=== PATIENT | male | born 1955 | race Caucasian/White ===

== ENCOUNTER 2019-03-01 12:13 | Outpatient (REF) | payer OTHER, SELFPAY ==
[2019-03-01 20:38] LABS: Abs Immature Grans 0.01 k/cumm (0.0-0.09); Absolute Basophil Count 0.02 k/cumm (0.0-0.2); Absolute Eosinophil Count 0.06 k/cumm (0.0-0.7); Absolute Lymphocyte Count 1.01 k/cumm (1.2-3.4); Absolute Monocyte Count 0.35 k/cumm (0.11-0.7); Absolute Neutrophil Count 2.84 k/cumm (1.2-6.7); Basophils % 0.5; Eosinophils % 1.4; HCT 41.2 % (40.0-50.0); HGB 13.8 g/dL (13.5-17.5); Immature Grans % 0.2; Lymphocytes % 23.5; Mean Corp. HGB Concentration 33.5 g/dL (32.0-36.0); Mean Corpuscular Hemoglobin 32.1 pg (27.0-33.0); Mean Corpuscular Volume 95.8 fL (80-95); Mean Platelet Volume 10.5 fL (8.0-11.0); Monocytes % 8.2; Neutrophils % 66.2; Platelet Count 281 x1000/uL (130-400); RBC Distribution Width 12.5 % (11.8-14.1); White Blood Cell Count 4.29 k/cumm (4.4-10.8)
[2019-03-01 20:39] LABS: Calculated LDL 87 mg/dL; Cholesterol 173 mg/dL (50-200); HDL Cholesterol 80 mg/dL (40-60); Triglyceride 33 mg/dL (30-150)
== END 2019-03-01 12:33 ==
LOC: NCHCN 12:13
PROVIDERS: PCP Internal Medicine; Visit Provider Internal Medicine
DX: D72.819 Decreased white blood cell count, unspecified (principal); Z13.220 Encounter for screening for lipoid disorders
CPT/HCPCS: 80061; 85025

== ENCOUNTER 2020-02-21 17:12 | Emergency (ER) | payer MEDICARE, OTHER, SELFPAY ==
[2020-02-21 17:17] VITALS: BP 139/82; PULSE 62; RESP 18; TEMP 36.1; O2SAT 99
--- NOTE | 2020-02-21 17:51 | ED.GENADUL_ITS ---
Discharge Plan Disposition Patient Disposition: HOME Condition: Stable Discharge Details Clinical Impression: Cervical muscle strain Primary Care Provider: Noel Peter ED Provider: Alona Moreno Home Meds and New Rx's Prescriptions: New cyclobenzaprine 10 mg tablet 10 mg PO TID PRN (Reason: muscle spasm) Qty: 10 RF: 0 No Action fluoxetine [Prozac] 20 MG capsule 1 tab PO DAILY RF: 0 bupropion HCl [Wellbutrin] 100 mg Tablet 150 mg PO DAILY RF: 0 Discharge Instructions Instructions: Cervical Strain (ED) Additional Instructions: Follow up with primary care provider in 3-5 days. Return to ED sooner if any worsening or concerns. Increase oral fluids. Please take Tylenol or Ibuprofen with food every 4-6 hours as needed for pain and swelling. Alternate ice and heat. Try massage. Referrals: Noel Peter MD [Primary Care Provider] - Discharge Data Discharge Date/Time-TO BE ENTERED AT DEPARTURE: 02/21/20 18:28 Medical Decision Making 64-year-old male presents to the ER with chief complaint of left lateral neck pain and stiffness which occurred while at work prior to arrival. He reports that he slept wrong and awoke with a stiff neck this morning. During work hours he raised his left arm up and had increased severe pain. He denies any trauma or falls, no fever chills. Upon initial exam he does have a muscle spasm and tight muscle noted to the left cervical paraspinous area. Patient did not take any medications prior to arrival. He does have a past medical history of depression. Patient was given Flexeril, lidocaine patch, Toradol which improved his sym ptoms. At this time no imaging was ordered due to no trauma or falls. Findings are consistent with musculoskeletal spasm. Patient was discharged home with prescription for Flexeril. HPI General Mode of arrival: ambulatory . Date/Time Provider Initiated Documentation: 02/21/20 17:31 . Limitations to Documentation: no limitations . Information obtained by: patient . HPI Narrative: 64-year-old male presents to the ER with chief complaint of left lateral neck pain and stiffness which occurred while at work prior to arrival. He reports that he slept wrong and awoke with a stiff neck this morning. During work hours he raised his left arm up and had increased severe pain. He denies any trauma or falls, no fever chills. Upon initial exam he does have a muscle spasm and tight muscle noted to the left cervical paraspinous area. Patient did not take any medications prior to arrival. He does have a past medical history of depression. Related Data Home Medications Medication Instructions Recorded Confirmed fluoxetine [Prozac] 1 tab PO DAILY 06/18/13 02/21/20 bupropion HCl [Wellbutrin] 150 mg PO DAILY 02/21/20 02/21/20 cyclobenzaprine 10 mg PO TID PRN #10 tab 02/21/20 Previous Rx's Medication Instructions Recorded cyclobenzaprine 10 mg PO TID PRN #10 tab 02/21/20 Allergies Allergy/AdvReac Type Severity Reaction Status Date / Time No Known Allergies Allergy Unverified 02/21/20 17:21 General Stated Complaint: Nk/Back Pain LEONEL: 3 Review of Systems Narrative: Constitutional: Negative for weight loss, alert and oriented, well groomed, normal body habitus, appears comfortable. HEENT: Denies trauma, headaches, blurry vision, nasal discharge, sore throat, trouble swallowing. Chest: Denies chest pain, palpitations, irregular rhythm, hypertension. Respiratory: Denies Shortness of breath, cough, hemoptysis. GI: Denies abdominal pain, nausea, vomiting, diarrhea, constipation. : Denies dysuria, hematuria, flank pain, rectal bleeding. Neuro: Denies dizziness, blurry vision, weakness, syncope, headache or facial numbness. Hematologic: Denies easy bruising, intolerance to heat or cold, hair loss. [facility] Social History Smoking/Tobacco Use Status: Never Alcohol Intake: former Drug use: Never Substance use type: does not use Do you feel safe at home: Yes Do you feel safe in your relationship?: Yes Exam Narrative Exam Narrative: Constitutional: Alert and oriented x3. Appears stated age. Normal body habitus. Head: Normocephalic, no trauma. Eyes: Pupils PERRLA, Red reflex noted, EOM's intact. Eyelids symmetrical without lesions, discharge, or swelling. ENT: Bilateral TM's WNL, External ear normal to inspection, no mastoid TTP, swelling, or erythema, Nasal turbinates WNL, no nasal discharge. Normal dentition, Posterior pharynx WNL, no exudate. Chest: RRR, Normal S1, S2, distal pulses intact. Resp: Lungs clear to auscultation bilaterally, no wheezes, rales, or rhonchi. Musculoskeletal: Normal gait, 5/5 strength to all four extremities. Skin: No suspicious rashes or lesions. Capillary refill less than 2 sec. Neurologic: Cranial nerves II-XII intact. Alert and oriented x 3. DTR's intact. Hematologic/Lymphatic: No ecchymosis, no lymphadenopathy. Course Vital Signs Vital signs: Vital Signs Temperature 36.1 C L 02/21/20 17:17 Pulse 62 02/21/20 17:17 Respiratory Rate 18 02/21/20 17:17 Blood Pressure 139/82 02/21/20 17:17 Pulse Oximetry 99 02/21/20 17:17 Temperature 36.1 C L 02/21/20 17:17 Temperature Source Temporal Artery Scan 02/21/20 17:17 Pulse 62 02/21/20 17:17 Respiratory Rate 18 02/21/20 17:17 Respiratory Effort Non-Labored 02/21/20 17:23 Blood Pressure 139/82 02/21/20 17:17 Blood Pressure Position Sitting 02/21/20 17:17 Pulse Oximetry 99 02/21/20 17:17 Pain Level 3 02/21/20 17:17
[2020-02-21] MEDS: Ketorolac 10 MG TAB PO (18:11)
[2020-02-21] MEDS: Cyclobenzaprine 10 MG TAB PO (18:11)
[2020-02-21] MEDS: Lidocaine 5% Patch 1 PATCH TP (18:29)
== END 2020-02-21 18:28 | disposition home or self-care (01) ==
PROVIDERS: Emergency Provider Registered Nurse Emergency; PCP Internal Medicine
DX: S16.1XXA Strain of muscle, fascia and tendon at neck level, initial encounter (principal); X50.9XXA Other and unspecified overexertion or strenuous movements or postures, initial encounter
CPT/HCPCS: 99283

== ENCOUNTER 2020-06-28 18:57 | Outpatient (REF) | payer MEDICARE, OTHER, SELFPAY ==
[2020-06-28 21:39] LABS: Abs Immature Grans 0.02 10^3/uL (0.0-0.06); Absolute Basophil Count 0.04 10^3/uL (0.0-0.2); Absolute Eosinophil Count 0.17 10^3/uL (0.0-0.7); Absolute Lymphocyte Count 1.61 10^3/uL (1.2-3.4); Absolute Monocyte Count 0.69 10^3/uL (0.1-0.8); Absolute Neutrophil Count 3.82 10^3/uL (1.2-6.7); Basophils % 0.6; Eosinophils % 2.7; HCT 40.8 % (40.0-50.0); HGB 13.7 g/dL (13.5-17.5); Immature Grans % 0.3; Lymphocytes % 25.4; MCH 32.5 pg (27.0-33.0); MCHC 33.6 % (32.0-36.0); MCV 96.9 fL (80-95); MPV 9.8 fL (8.0-11.0); Monocytes % 10.9; Neutrophils % 60.1; Nucleated RBC 0 %; Platelet Count 280 10^3/uL (130-400); RBC 4.21 10^6/uL (4.36-5.78); RDW 12.7 % (11.8-14.1); RDW-SD 45.1 fL; WBC 6.35 10^3/uL (4.4-10.8)
[2020-06-28 21:52] LABS: ALT 24 U/L (16-63); AST 23 U/L (15-37); Albumin 3.8 g/dL (3.4-5.0); Alkaline Phosphatase 60 U/L (46-116); Anion Gap 7.5 mmol/L (3-11); BUN 21 mg/dL (7-18); Bilirubin, Total 0.5 mg/dL (0.2-1.0); CO2 29.5 mmol/L (21.0-32.0); CREATININE 0.9 mg/dL (0.70-1.30); Calcium 9.1 mg/dL (8.5-10.1); Chloride 103 mmol/L (98-107); Glucose 88 mg/dL (74-106); Potassium 4.5 mmol/L (3.5-5.1); Sodium 140 mmol/L (136-145); Total Protein 6.8 g/dL (6.4-8.2)
[2020-06-29 02:13] LABS: ESR 15 mm/hr (<or=20)
== END 2020-06-28 18:58 | disposition home or self-care (01) ==
LOC: NCHCN 18:57
PROVIDERS: PCP Internal Medicine; Visit Provider Nurse Practitioner Family
DX: R10.9 Unspecified abdominal pain (principal)
CPT/HCPCS: 80053; 85652; 85025

== ENCOUNTER 2021-06-05 16:43 | Emergency (ER) | payer MEDICARE, OTHER, SELFPAY ==
[2021-06-05 16:49] VITALS: BP 141/75; PULSE 67; RESP 16; TEMP 36.8; O2SAT 98
[2021-06-05] MEDS: Acetaminophen 325 MG TAB 650 MG PO (17:27)
--- NOTE | 2021-06-05 17:47 | NUR.NOTE ---
Nursing Note:Pt ambulatory to radiology for head CT
--- NOTE | 2021-06-05 17:53 | NUR.NOTE ---
Nursing Note: Pt return from radiology, head abrasion cleansed with NS, no current bleeding.
--- NOTE | 2021-06-05 17:59 | DI.CT_ITS ---
Exam(s) CT HEAD WO EXAM: CT HEAD WO CLINICAL HISTORY: Trauma. TECHNIQUE: Imaging Protocol: Axial computed tomography images with coronal and sagittal reformatted images were created and reviewed COMPARISON: No exams were available for comparison FINDINGS: There is mild generalized cerebral atrophy. No evidence of acute intracranial hemorrhage, mass effect, or midline shift. The orbital structures are unremarkable. The temporal bone structures appear intact. Calvarium: Normal. Visualized Paranasal sinuses/Mastoids: Clear. IMPRESSION: No evidence of acute intracranial process. RADIATION DOSE DELIVERED: 699.14mGy.cm Total DLP 699.14mGy.cm Total DLP CTDIvol DATA REPOSITORY: All CT scans at this facility are submitted to the National Radiology Data Registry (NRDR) Dose Index Registry (DIR) with the [employer] ([employer]). RADIATION OPTIMIZATION: All CT scans at this facility use at least one of these dose optimization te chniques: automated exposure control; mA and/or kV adjustment per patient size (includes targeted exa ms where dose is matched to clinical indication); or iterative reconstruction.
--- NOTE | 2021-06-05 18:30 | DI.VRAD_ITS ---
PROCEDURE INFORMATION: Exam: CT Head Without Contrast Exam date and time: 06/05/2021 5:19 PM Age: 65 years old Clinical indication: Injury or trauma; Laceration; Without loss of consciousness; Without residual foreign body; Not specified; Patient HX: Trauma, S/P fall down 7 stairs hitting head on door. No loc TECHNIQUE: Imaging protocol: Computed tomography of the head without contrast. Radiation optimization: All CT scans at this facility use at least one of these dose optimization techniques: automated exposure control; mA and/or kV adjustment per patient size (includes targeted exams where dose is matched to clinical indication); or iterative reconstruction. COMPARISON: CT HEAD WITHOUT CONTRAST 07/26/2014 1:46 PM FINDINGS: Brain: Slight prominence of cerebral sulci reflects mild volume loss. Posterior fossa contents including brainstem and cerebellum are unremarkable and no significant foci of abnormal increased or decreased attenuation are seen within the brain parenchyma. No intracranial hemorrhage is detected. Cerebral ventricles: Ventricular and cisternal spaces are normal in size and configuration and there is no midline shift or hydrocephalus. Paranasal sinuses: Lobular mucosal disease is seen along the medial base of the right maxillary sinus with other paranasal sinuses clear throughout. Mastoid air cells: Grossly clear bilaterally. Orbital cavity: Both globes appear intact and no orbital lesions are detected. Bones/joints: The bony calvarium and skull base are intact and no fractures or other acute osseous lesions are detected. Soft tissues: Unremarkable. IMPRESSION: Mild cerebral atrophy with no evidence of acute infarct, recent hemorrhage or hydrocephalus. No acute intracranial process is detected. Dictated and Authenticated by: Jacobo Orozco MD. Ordering:DONTE Herrera MD
--- NOTE | 2021-06-05 18:31 | ED.GENADUL_ITS ---
Discharge Plan Disposition Patient Disposition: HOME Condition: Stable Discharge Details Clinical Impression: Head injury due to trauma, Laceration of scalp Primary Care Provider: Noel Peter ED Provider: Javier Perez Home Meds and New Rx's Prescriptions: Continued fluoxetine [Prozac] 20 MG capsule 1 tab PO DAILY RF: 0 bupropion HCl 100 mg Tablet 150 mg PO DAILY RF: 0 Discharge Instructions Instructions: Head Injury (ED), Head Laceration (ED) Additional Instructions: You may continue to take [id number] pain medication as needed for discomfort. Please keep wound clean and dry and return to the emergency department for any new or significant worsening of your symptoms. If you have any neurological complaints, neurological deficit, vision changes, or loss of consciousness you should return immediately for reassessment. Otherwise rest over the couple days and slowly increase activity as tolerated Discharge Data Discharge Date/Time-TO BE ENTERED AT DEPARTURE: 06/05/21 19:03 Medical Decision Making Patient presenting to the emergency department for chief complaint of mechanical fall. Patient states approximately 30 minutes prior to arrival he fell down approximately 7 stairs hitting his head. Patient denies any neck pain, loss of consciousness, focal neurological deficits but does state some mild dizziness and headache. Physical exam shows no C-spine tenderness, normal neurological exam, and laceration to scalp. Given patient's age and mechanism of injury plan to perform radiological imaging. Radiological imaging shows no acute findings. Wound was cleansed and treated appropriately. Return and follow-up precautions were discussed. At this time I do not feel that patient suffered a concussion but concussion precautions were still discussed given mechanism of injury. After discussion of diagnosis and plan of care patient has no further needs, questions, or concerns and states clear understanding to return to the emergency department for any worsening symptoms. HPI General Mode of arrival: ambulatory . Date/Time Provider Initiated Documentation: 06/05/21 16:57 . Limitations to Documentation: no limitations . Information obtained by: patient . History of Present Illness 65 year old M presents to the emergency department with the chief complaint of Mechanical fall downstairs, described as moderate, with intensity rated at 7. Quality is described as aching, and is localized to the head. Patient reports no radiation. Patient started experiencing this minute(s) (30) and it has been constant. No relieving factors improve symptom(s), No exacerbating factors reported . Patient notes no other symptoms.. Patient did receive the following treatments prior to arrival, none Related Data Home Medications Medication Instructions Recorded Confirmed fluoxetine [Prozac] 1 tab PO DAILY 06/18/13 06/05/21 bupropion HCl 150 mg PO DAILY 02/21/20 06/05/21 Allergies Allergy/AdvReac Type Severity Reaction Status Date / Time No Known Allergies Allergy Verified 06/05/21 16:56 General Stated Complaint: HeadInjury LEONEL: 3 Review of Systems Constitutional Constitutional: Denies body ache(s), Denies chills, Denies fever(s) and Reports headache(s) Eyes Eyes: Denies change in vision ENT Ears, Nose, Mouth, and Throat: Reports dizziness, Reports headache(s) and Denies neck pain Cardiovascular Cardiovascular: Denies chest pain and Denies syncope Gastrointestinal Gastrointestinal: Reports nausea and Reports vomiting Musculoskeletal Musculoskeletal: Denies back pain and Denies neck pain Neurologic Neurologic: Reports as per HPI, Reports dizziness, Denies syncope, Reports headache(s) and Denies sensory deficit PFSH All Active Problems Head injury due to trauma (Acute) Laceration of scalp (Acute) Social History Smoking/Tobacco Use Status: Never Smoking risk assessment performed?: Yes Alcohol Intake: former Drug use: Never Substance use type: does not use Do you feel safe at home: Yes Do you feel safe in your relationship?: Yes Exam Const General: cooperative, healthy appearing, no acute distress and well groomed Orientation: alert, awake and oriented x3 HENMT Head: no Lacy's sign, laceration left frontal linear and superficial 1.57 in, scalp tenderness and No periorbital ecchymosis Ears: hearing grossly normal bilaterally and TM's normal bilaterally Mouth: oral mucosae normal and moist mucous membranes Throat: posterior oropharynx normal Eyes Visual Trejo: normal visual trejo by confrontation Alignment and Position: alignment normal Periorbital: periorbital findings normal Eyelids: eyelids normal Sclera: sclerae normal Cornea: corneas normal Pupils: PERRL EOM: EOM intact bilaterally Neck Neck: normal visual inspection, full ROM, no lymphadenopathy and no meningeal signs Resp Effort & Inspection: normal respiratory effort and able to speak in complete sentences Auscultation: clear to auscultation bilaterally Cardio Rate: regular rate Rhythm: regular rhythm Heart Sounds: S1 normal and S2 normal Back/Spine/Pelvis Back: No back tenderness Cervical Spine: normal cervical lordosis, cervical ROM normal, No cervical muscular tenderness, No pain with cervical ROM, No cervical spinal tenderness and No step off deformity Neuro General: patient alert, patient awake, patient oriented x3, gait normal, tone normal, moves all extremities, CN's II-XI intact bilaterally and not confused Cognition: normal cognition Speech: speech normal Motor: no movement abnormalities noted and no fasciculations Sensory Exam: no sensory deficits noted Coordination: Does not sway with eyes open Course Vital Signs Vital signs: Vital Signs Temperature 36.8 C 06/05/21 16:49 Pulse 67 06/05/21 16:49 Respiratory Rate 16 06/05/21 16:49 Blood Pressure 141/75 H 06/05/21 16:49 Pulse Oximetry 98 06/05/21 16:49 Temperature 36.8 C 06/05/21 16:49 Temperature Source Skin 06/05/21 16:49 Pulse 67 06/05/21 16:49 Respiratory Rate 16 06/05/21 16:49 Respiratory Effort Non-Labored 06/05/21 16:58 Respiratory Depth Normal 06/05/21 16:58 Respiratory Pattern Normal 06/05/21 16:58 Blood Pressure 141/75 H 06/05/21 16:49 Blood Pressure Position Sitting 06/05/21 16:49 Pulse Oximetry 98 06/05/21 16:49 Oxygen Delivery Method Room Air 06/05/21 16:49 Oxygen Flow Rate 0 06/05/21 16:49 Pain Level 5 06/05/21 17:27 Procedures Laceration Laceration 1: Site: scalp Size (cm): 4 Description: linear Depth: simple, single layer Skin layer closed with: other (dermabond)
[2021-06-05 19:01] VITALS: BP 138/88; PULSE 74; RESP 18; TEMP 36.8; O2SAT 99
== END 2021-06-05 19:03 | disposition home or self-care (01) ==
PROVIDERS: Emergency Provider Nurse Practitioner Family; PCP Internal Medicine
DX: S01.01XA Laceration without foreign body of scalp, initial encounter (principal); W10.8XXA Fall (on) (from) other stairs and steps, initial encounter
CPT/HCPCS: 12002; 99284; 70450; 99283

== ENCOUNTER 2021-12-11 15:55 | Outpatient (REF) | payer MEDICARE, OTHER, SELFPAY ==
[2021-12-11 14:49] LABS: Abs Immature Grans 0.01 10^3/uL (0.0-0.06); Absolute Basophil Count 0.04 10^3/uL (0.0-0.2); Absolute Eosinophil Count 0.07 10^3/uL (0.0-0.7); Absolute Monocyte Count 0.38 10^3/uL (0.1-0.8); Absolute Neutrophil Count 3.55 10^3/uL (1.2-6.7); Basophils % 0.8; Eosinophils % 1.4; HCT 41.4 % (40.0-50.0); HGB 13.6 g/dL (13.5-17.5); Immature Grans % 0.2; Lymphocytes % 18.2; MCH 32.5 pg (27.0-33.0); MCHC 32.9 % (32.0-36.0); MCV 99 fL (80-95); MPV 9.8 fL (8.0-11.0); Monocytes % 7.7; Neutrophils % 71.7; Platelet Count 245 10^3/uL (130-400); RBC 4.18 10^6/uL (4.36-5.78); RDW 12.2 % (11.8-14.1); RDW-SD 44.4 fL; WBC 4.95 10^3/uL (4.4-10.8)
== END 2021-12-11 15:56 | disposition home or self-care (01) ==
LOC: NCHCN 15:55
PROVIDERS: PCP Internal Medicine; Visit Provider Internal Medicine
DX: D72.819 Decreased white blood cell count, unspecified (principal); F32.9 Major depressive disorder, single episode, unspecified; M47.892 Other spondylosis, cervical region
CPT/HCPCS: 85025

== ENCOUNTER 2022-09-18 00:35 | Outpatient (CLI) | payer MEDICARE, OTHER, SELFPAY ==
--- NOTE | 2022-09-18 | DI.MRI_ITS ---
Exam(s) MR LOWER JOINT LT WO EXAM: MR LOWER JOINT LT WO CLINICAL HISTORY: ACUTE LT KNEE PAIN, M25.562, LT KNEE LOCKS UP, DECREASED MOBILITIY, EFFUSIO. TECHNIQUE: Multiplanar multisequence MRI was performed. COMPARISON: No exams were available for comparison FINDINGS: BONES: There is no fracture or contusion pattern. JOINTS: There is mild thinning of the articular cartilage in the lateral patellar facet with mild sub chondral edema. There to clear cartilage is otherwise well maintained. No effusion is present. TENDONS: Extensor mechanism: Unremarkable. Medial retinaculum: Unremarkable. Lateral retinaculum: Unremarkable. Popliteus: Unremarkable. MUSCLES: Unremarkable. MENISCI: There is a focus of hyperintense signal seen in the posterior body of the medial meniscus diop ggestive of a tear. Degenerative signal seen in the lateral meniscus. No evidence of a tear. SOFT TISSUES: There is a large popliteal cyst measuring 2.2 x 3.3 x 14 cm. LIGAMENTS: Anterior Cruciate: Unremarkable. Posterior Cruciate: Unremarkable. Medial Collateral:There is a small amount of fluid around the medial collateral ligament which may re present a sprain. Lateral Collateral: Unremarkable. OTHER: IMPRESSION: 1. Large popliteal cyst. It measures 2.2 x 3.3 x 14 cm. 2. Focus of hyperintense signal seen in the posterior body of the medial meniscus suggestive of a tea r. 3. MCL sprain. 4. Degenerative changes in the patellofemoral joint. DATA REPOSITORY:
== END 2022-09-18 00:55 ==
PROVIDERS: PCP Internal Medicine; Visit Provider Internal Medicine
DX: M25.562 Pain in left knee (principal); M71.22 Synovial cyst of popliteal space [Baker], left knee
CPT/HCPCS: 73721

== ENCOUNTER 2022-10-10 12:49 | Outpatient (REF) | payer MEDICARE, OTHER, SELFPAY ==
[2022-10-10 14:22] LABS: Bilirubin Negative (Negative); Blood Negative (Negative); Clarity Clear (Clear); Glucose Negative (Negative); Ketones Trace mg/dL (Negative); Leukocyte Esterase Negative (Negative); Nitrite Negative (Negative); Specific Gravity 1.015 (1.005-1.025); Urobilinogen 0.2 mg/dL (Up to 0.2)
[2022-10-10 14:40] LABS: Anion Gap 6.7 mmol/L (3-11); BUN 22 mg/dL (7-18); CO2 28.3 mmol/L (21.0-32.0); CREATININE 1.1 mg/dL (0.70-1.30); Calcium 9.4 mg/dL (8.5-10.1); Calculated LDL 79 mg/dL (<100); Chloride 105 mmol/L (98-107); Cholesterol 190 mg/dL (<200); Estimated GFR 73.12 (mL/min/1.73m2); Glucose 120 mg/dL (74-106); HDL Cholesterol 95 mg/dL (40-60); Sodium 140 mmol/L (136-145); Triglyceride 81 mg/dL (<150)
== END 2022-10-10 12:50 | disposition home or self-care (01) ==
LOC: NCHCN 12:49
PROVIDERS: PCP Internal Medicine; Visit Provider Internal Medicine
DX: R03.0 Elevated blood-pressure reading, without diagnosis of hypertension (principal); R73.09 Other abnormal glucose; R82.998 Other abnormal findings in urine; Z13.6 Encounter for screening for cardiovascular disorders
CPT/HCPCS: 80048; 80061; 81003

== ENCOUNTER → 2023-04-03 09:02 | Outpatient (BNVA) | payer MEDICARE, OTHER, SELFPAY | PROVIDERS: PCP Family Medicine; Referring Provider Family Medicine; Visit Provider Student in an Organized Health Care Education/Training Program | DX: M72.0 Palmar fascial fibromatosis [Dupuytren] (principal) | CPT/HCPCS: 99213 ==

== ENCOUNTER 2023-05-28 13:35 | Outpatient (REF) | payer MEDICARE, OTHER, SELFPAY ==
[2023-05-28 23:11] LABS: PSA, Screening 21.3 ng/mL (<=4.5)
== END 2023-05-28 13:36 | disposition home or self-care (01) ==
LOC: NCHCN 13:35
PROVIDERS: PCP Family Medicine; Visit Provider Family Medicine
DX: N40.0 Benign prostatic hyperplasia without lower urinary tract symptoms (principal); Z12.5 Encounter for screening for malignant neoplasm of prostate; R97.20 Elevated prostate specific antigen [PSA]
CPT/HCPCS: 84153; 87086

== ENCOUNTER → 2023-06-04 14:52 | Outpatient (BNVA) | payer MEDICARE, OTHER, SELFPAY | PROVIDERS: PCP Family Medicine; Referring Provider Family Medicine; Visit Provider Nurse Practitioner Gerontology | DX: N40.2 Nodular prostate without lower urinary tract symptoms (principal); R35.1 Nocturia; R97.20 Elevated prostate specific antigen [PSA] | CPT/HCPCS: 51798; 99215 ==

== ENCOUNTER → 2023-06-20 12:31 | Outpatient (BNVA) | payer MEDICARE, OTHER, SELFPAY | PROVIDERS: PCP Family Medicine; Referring Provider Family Medicine; Visit Provider Urology | DX: N42.89 Other specified disorders of prostate (principal); R97.20 Elevated prostate specific antigen [PSA] | CPT/HCPCS: 99214 ==

== ENCOUNTER → 2023-06-26 08:38 | Outpatient (BNVA) | payer MEDICARE, OTHER, SELFPAY | PROVIDERS: PCP Family Medicine; Referring Provider Family Medicine; Visit Provider Urology | DX: N42.89 Other specified disorders of prostate (principal); R97.20 Elevated prostate specific antigen [PSA] | CPT/HCPCS: 55700; 76872 ==

== ENCOUNTER 2023-06-26 09:13 | Outpatient (REF) | payer MEDICARE, OTHER, SELFPAY ==
--- NOTE | 2023-06-26 09:30 | PROST_PTH ---
PATIENT: Andrea Spaulding LOC: [facility] U#:[id number] AGE/SX: 67/M ROOM: RE06/26/[address]: Pantera Calvo MD : 1955 BED: DIS: 06/26/2023 SPEC #: [id number] RECD: 06/26/23 12:36 STATUS: ANNA REHeidi #: [id number] DANGELO: 06/26/23 09:[address]: Pantera Calvo DEPT: Surgical Specimen RECD BY: Carisa Weiss ENTERED: 06/26/23 12:40 SP TYPE: PROST OTHR DR: Brendan Lee Tissues: 1 - PROSTATE NEEDLE BIOPSY 2 - PROSTATE NEEDLE BIOPSY 3 - PROSTATE NEEDLE BIOPSY 4 - PROSTATE NEEDLE BIOPSY 5 - PROSTATE NEEDLE BIOPSY 6 - PROSTATE NEEDLE BIOPSY 7 - PROSTATE NEEDLE BIOPSY 8 - PROSTATE NEEDLE BIOPSY 9 - PROSTATE NEEDLE BIOPSY 10 - PROSTATE NEEDLE BIOPSY 11 - PROSTATE NEEDLE BIOPSY 12 - PROSTATE NEEDLE BIOPSY Procedures: GROSS AND MICRO LEVEL 4 Comments: [id number]
== END 2023-06-26 09:14 | disposition home or self-care (01) ==
LOC: LBN 09:13
PROVIDERS: PCP Family Medicine; Visit Provider Urology
DX: R97.20 Elevated prostate specific antigen [PSA] (principal); C61 Malignant neoplasm of prostate
CPT/HCPCS: 88305

== ENCOUNTER → 2023-07-11 10:36 | Outpatient (BNVA) | payer MEDICARE, OTHER, SELFPAY | PROVIDERS: PCP Family Medicine; Referring Provider Family Medicine; Visit Provider Urology | DX: C61 Malignant neoplasm of prostate (principal) | CPT/HCPCS: 99215 ==

== ENCOUNTER → 2023-10-07 07:53 | Outpatient (BNVA) | payer MEDICARE, OTHER, SELFPAY | PROVIDERS: PCP Family Medicine; Referring Provider Family Medicine; Visit Provider Urology | DX: C61 Malignant neoplasm of prostate (principal) | CPT/HCPCS: 99213 ==

== ENCOUNTER 2023-11-10 16:39 | Outpatient (REF) | payer MEDICARE, OTHER, SELFPAY ==
[2023-11-10 15:57] LABS: HCT 39.8 % (40.0-50.0); HGB 13.1 g/dL (13.5-17.5); MCH 32.5 pg (27.0-33.0); MCHC 32.9 % (32.0-36.0); MCV 99 fL (80-95); MPV 9.8 fL (8.0-11.0); Platelet Count 253 10^3/uL (130-400); RBC 4.03 10^6/uL (4.36-5.78); RDW 12.3 % (11.8-14.1); RDW-SD 45.1 fL; WBC 4.26 10^3/uL (4.4-10.8)
[2023-11-10 17:24] LABS: ALT 32 U/L (16-63); AST 29 U/L (15-37); Albumin 4.1 g/dL (3.4-5.0); Alkaline Phosphatase 78 U/L (46-116); Anion Gap 6.6 mmol/L (3-11); BUN 21 mg/dL (7-18); Bilirubin, Total 0.53 mg/dL (0.2-1.0); CO2 29.4 mmol/L (21.0-32.0); CREATININE 1.1 mg/dL (0.70-1.30); Calcium 9.6 mg/dL (8.5-10.1); Chloride 105 mmol/L (98-107); Estimated GFR 72.67 (mL/min/1.73m2); Glucose 97 mg/dL (74-106); Potassium 4.7 mmol/L (3.5-5.1); Sodium 141 mmol/L (136-145); Total Protein 6.9 g/dL (6.4-8.2); Vitamin B12 141 pg/mL (193-986)
== END 2023-11-10 16:40 | disposition home or self-care (01) ==
LOC: NCHCN 16:39
PROVIDERS: PCP Family Medicine; Visit Provider Family Medicine
DX: R03.0 Elevated blood-pressure reading, without diagnosis of hypertension (principal); D53.1 Other megaloblastic anemias, not elsewhere classified
CPT/HCPCS: 80053; 85027; 82607

== ENCOUNTER → 2023-12-22 08:46 | Outpatient (BNVA) | payer MEDICARE, OTHER, SELFPAY | PROVIDERS: PCP Family Medicine; Referring Provider Family Medicine; Visit Provider Surgery | DX: L98.9 Disorder of the skin and subcutaneous tissue, unspecified (principal); C61 Malignant neoplasm of prostate; D53.1 Other megaloblastic anemias, not elsewhere classified | CPT/HCPCS: 99213 ==

== ENCOUNTER 2024-05-03 13:04 | Outpatient (CLI) | payer MEDICARE, OTHER, SELFPAY ==
[2024-05-05 10:32] LABS: PSA, Ultrasensitive 0.09 ng/mL (<= 4.5)
== END 2024-05-03 13:05 | disposition home or self-care (01) ==
PROVIDERS: PCP Family Medicine; Visit Provider Radiology Radiation Oncology
DX: C61 Malignant neoplasm of prostate (principal)
CPT/HCPCS: 36415; 84153

== ENCOUNTER 2024-08-16 10:53 | Outpatient (CLI) | payer MEDICARE, OTHER, SELFPAY ==
[2024-08-18 10:21] LABS: PSA, Ultrasensitive 0.45 ng/mL (<= 6.5)
[2024-08-19 15:12] LABS: Testosterone, Total 519 ng/dL (240-950)
== END 2024-08-16 10:54 | disposition home or self-care (01) ==
LOC: LBO 11:03
PROVIDERS: PCP Family Medicine; Visit Provider Radiology Radiation Oncology
DX: C61 Malignant neoplasm of prostate (principal)
CPT/HCPCS: 36415; 84153; 84403

== ENCOUNTER 2024-10-04 02:38 | Outpatient (CLI) | payer MEDICARE, OTHER, SELFPAY ==
--- NOTE | 2024-10-04 | DI.MRI_ITS ---
Exam(s) MR LUMBAR SPINE WO EXAM: MR LUMBAR SPINE WO CLINICAL HISTORY: SCIATICA LT SIDE,M54.32. TECHNIQUE: Multiplanar multisequence MRI of the Lumbar spine was performed. COMPARISON: MR MRI - LUMBAR SPINE WO CONTRAST from 11/25/2013 FINDINGS: Bones: The last intervertebral disc space is designated the L5/S1 level for the numbering purpose of this ex amination. The vertebral body heights are well maintained. Alignment: Unremarkable. Degenerative marrow signal changes in the endplates at L 4 5 and L5-S1. Cord: The conus tip ends at the T12 level. It is of normal size and signal intensity. T12-L1: Mild loss of disc height. Small endplate osteophytes. No focal disc herniation is present. No central spinal canal stenosis.No neural foraminal stenosis. L1-2:Severe loss of disc height. Small endplate osteophytes. No focal disc herniation is present. No central spinal canal stenosis. Mild bilateral neural foraminal stenosis. L2-3:Moderate loss of disc height. Small endplate osteophytes. No focal disc herniation is present. Mild facet joint degenerative changes. No central spinal canal stenosis. Moderate bilateral neural foraminal stenosis. L3-4: Normal disc height. Mild disc bulging. Mild facet degenerative changes.No focal disc herniation is present. No central spinal canal stenosis.Mild bilateral neural foraminal stenosis. L4-5:Right laminectomy. Moderate loss of disc height. Facet degenerative changes. No focal disc herni ation is present. Moderate central spinal canal stenosis.Moderate to severe bilateral neural foramin al stenosis. Mild spondylolisthesis. L5-S1: Mild loss of disc height eccentric toward the left. Endplate osteophytes eccentric toward the left. No focal disc herniation is present. No central spinal canal stenosis.Moderate left neural f oraminal stenosis. The visualized SI joints and sacrum are unremarkable. Soft tissues: The paraspinal soft tissues are unremarkable. IMPRESSION: Postsurgical and degenerative changes at L4-5 where there is moderate spinal stenosis and moderate bi lateral neural foraminal narrowing. No focal disc herniation.. DATA REPOSITORY:
== END 2024-10-04 02:58 ==
LOC: DI 02:38
PROVIDERS: PCP Family Medicine; Visit Provider Family Medicine
DX: M54.32 Sciatica, left side (principal); M48.061 Spinal stenosis, lumbar region without neurogenic claudication
CPT/HCPCS: 72148

== ENCOUNTER 2024-11-01 09:51 | Outpatient (CLI) | payer MEDICARE, OTHER, SELFPAY ==
[2024-11-03 16:45] LABS: PSA, Ultrasensitive 0.49 ng/mL (<= 6.5)
[2024-11-06 15:32] LABS: Testosterone, Total 445 ng/dL (240-950)
== END 2024-11-01 09:52 | disposition home or self-care (01) ==
LOC: LBO 09:53
PROVIDERS: PCP Family Medicine; Visit Provider Radiology Radiation Oncology
DX: C61 Malignant neoplasm of prostate (principal)
CPT/HCPCS: 36415; 84153; 84403

== ENCOUNTER 2024-11-18 15:40 | Outpatient (REF) | payer MEDICARE, OTHER, SELFPAY ==
[2024-11-18 18:19] LABS: HCT 35.8 % (40.0-50.0); HGB 11.9 g/dL (13.5-17.5); MCH 32.8 pg (27.0-33.0); MCHC 33.2 % (32.0-36.0); MCV 99 fL (80-95); MPV 9.4 fL (8.0-11.0); Platelet Count 300 10^3/uL (130-400); RBC 3.63 10^6/uL (4.36-5.78); RDW 12.9 % (11.8-14.1); RDW-SD 46.3 fL; WBC 4.00 10^3/uL (4.4-10.8)
[2024-11-18 18:24] LABS: Anion Gap 8.9 mmol/L (3-11); BUN 17 mg/dL (7-18); CO2 28.1 mmol/L (21.0-32.0); Calcium 9.5 mg/dL (8.5-10.1); Chloride 105 mmol/L (98-107); Estimated GFR 95.21 (mL/min/1.73m2); Glucose 87 mg/dL (74-106); Potassium 4.3 mmol/L (3.5-5.1); Sodium 142 mmol/L (136-145)
== END 2024-11-18 15:41 | disposition home or self-care (01) ==
LOC: NCHCN 15:40
PROVIDERS: PCP Family Medicine; Visit Provider Family Medicine
DX: F32.A Depression, unspecified (principal)
CPT/HCPCS: 80048; 85027

== ENCOUNTER 2024-12-02 06:17 | Emergency (ER) | payer MEDICARE, OTHER, SELFPAY ==
[2024-12-02 06:20] VITALS: BP 147/79; PULSE 66; RESP 16; TEMP 36.7; O2SAT 96
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
--- NOTE | 2024-12-02 06:47 | DI.RAD_ITS ---
Exam(s) XR KNEE RT 3V AP,LAT,NILESH EXAM: XR KNEE RT 3V AP,LAT,NILESH CLINICAL HISTORY: trauma. TECHNIQUE: 2D digital imaging was performed of the right knee. Three views obtained. AP, lateral and PA tunnel views were obtained. COMPARISON: There are no priors for comparison. FINDINGS: BONES: No acute fracture is present. No bony destructive lesion is seen. JOINTS: Small osteophytes are seen at the proximal tibia. There is chondrocalcinosis in the femoral tibial joint. There is a small joint effusion. SOFT TISSUE: Atherosclerotic calcification is present. IMPRESSION: 1. There is no fracture or dislocation. 2. Small joint effusion. 3. The preliminary [facility] report was reviewed. DATA REPOSITORY: RADIATION DOSE DELIVERED:
[2024-12-02 07:15] VITALS: BP 146/73; PULSE 63; RESP 20; O2SAT 98
--- NOTE | 2024-12-02 08:35 | DI.[facility]_ITS ---
PROCEDURE INFORMATION: Exam: XR Right Knee Exam date and time: 12/02/2024 6:45 AM Age: 69 years old Clinical indication: Injury or trauma; Fall; Blunt trauma; Knee; Injury date: 12/02/24; Right leg injury TECHNIQUE: Imaging protocol: Radiologic exam of the right knee. Views: 3 views. COMPARISON: No relevant prior studies available. FINDINGS: Bones/joints: No fractures are identified. Alignment is anatomic. There are small marginal osteophytes in all 3 compartments, with sharpening of the tibial spines. Chondrocalcinosis is noted. There is a small joint effusion. Soft tissues: No acute abnormality. IMPRESSION: 1. No fracture or malalignment in the right knee. 2. Small right knee effusion. 3. Chronic changes as above. Dictated and Authenticated by: Nazanin Rosales MD. Orderin Mario Vaz MD
--- NOTE | 2025-01-03 11:53 | NUR.NOTE ---
Access chart to to print the provider note and the radiology reports to fax to [facility] for billing purposes. Nursing Note:
== END 2024-12-02 07:25 | disposition home or self-care (01) ==
PROVIDERS: Emergency Provider Emergency Medicine; PCP Family Medicine
DX: S89.81XA Other specified injuries of right lower leg, initial encounter (principal); X50.1XXA Overexertion from prolonged static or awkward postures, initial encounter; Y93.89 Activity, other specified; Y92.89 Other specified places as the place of occurrence of the external cause
CPT/HCPCS: 73562; 99283

== ENCOUNTER 2024-12-14 12:59 | Outpatient (REF) | payer MEDICARE, OTHER, SELFPAY ==
[2024-12-14 22:58] LABS: TSH (W/Ref FT4) 0.37 uIU/mL (0.36-3.74); Vitamin B12 1105 pg/mL (193-986)
[2024-12-15 22:36] LABS: Folate 14.8 ng/mL (See Note)
== END 2024-12-14 13:00 | disposition home or self-care (01) ==
LOC: NCHCN 12:59
PROVIDERS: PCP Family Medicine; Visit Provider Family Medicine
DX: R41.3 Other amnesia (principal)
CPT/HCPCS: 82607; 82746; 84443

== ENCOUNTER 2024-12-29 14:06 | Outpatient (CLI) | payer MEDICARE, OTHER, SELFPAY ==
--- NOTE | 2024-12-29 | DI.CT_ITS ---
Exam(s) CT HEAD WO EXAM: CT HEAD WO CLINICAL HISTORY: AMNESIA R41.3 MEMORY CHANGES. TECHNIQUE: Imaging Protocol: Axial computed tomography images with coronal and sagittal reformatted images were created and reviewed COMPARISON: CT CT HEAD WO from 06/05/2021 FINDINGS: Ventricles and Extra axial spaces: Normal in size and morphology for the patient's age. Hemorrhage: None. Cerebral parenchyma: No evidence of acute infarct or mass. No significant atrophy. No visible white matter changes. Midline shift: None. Brainstem/Cerebellum: Normal. Bones: No skull or facial fractures. Visualized Paranasal sinuses:Clear. Mastoids: Clear. Soft Tissues: Unremarkable. ORBITS: Unremarkable. PITUITARY: Not enlarged. IMPRESSION: No acute intracranial process. RADIATION DOSE DELIVERED: Total [facility]LP DATA REPOSITORY: All CT scans at this facility are submitted to the National Radiology Data Registry (NRDR) Dose Index Registry (DIR) with the [employer] ([employer]). RADIATION OPTIMIZATION: All CT scans at this facility use at least one of these dose optimization techniques: automated exposure control; mA and/or kV adjustment per patient size (includes targeted exams where dose is matched to clinical indication); or iterative reconstruction.
== END 2024-12-29 14:26 ==
LOC: DI 14:06
PROVIDERS: PCP Family Medicine; Visit Provider Family Medicine
DX: R41.3 Other amnesia (principal)
CPT/HCPCS: 70450

== ENCOUNTER → 2025-04-19 14:46 | Outpatient (BNVA) | payer MEDICARE, OTHER, SELFPAY | PROVIDERS: PCP Family Medicine; Referring Provider Family Medicine; Visit Provider Urology | DX: C61 Malignant neoplasm of prostate (principal); R30.0 Dysuria; R39.9 Unspecified symptoms and signs involving the genitourinary system | CPT/HCPCS: 99213 ==

== ENCOUNTER → 2025-04-27 00:18 | Outpatient (CLI) | payer MEDICARE, OTHER, SELFPAY ==
--- NOTE | 2025-04-27 | DI.MRI_ITS ---
Exam(s) MR BRAIN WO EXAM: MR BRAIN WO CLINICAL HISTORY: PROGRESSIVE COGNITIVE DECLINE, HX TOBACCO USE/ALCOHOL ABUSE, MEGALOBLASTIC TECHNIQUE: Multiplanar multisequence MRI of the brain was performed. COMPARISON: CT CT HEAD WO from 12/29/2024 FINDINGS: VENTRICLES AND EXTRA AXIAL SPACES: Normal in size and morphology for the patient's age. MIDLINE SHIFT: None. CEREBRAL PARENCHYMA: No focus of restricted diffusion to suggest acute infarct. No space-occupying lesion identified. Mild atrophy consistent with the patient's age. Mild scattered foci of high signal in the white matter consistent with sequela of chronic microvascular disease. BRAINSTEM/CEREBELLUM: Normal. VISUALIZED PARANASAL SINUSES: Mucosal thickening in the mastoids. MASTOIDS:Clear. Vasculature: Normal flow void. PITUITARY GLAND: Unremarkable. ORBITS: Unremarkable. IMPRESSION: Unremarkable MRI of the brain. DATA REPOSITORY:
== END ==
PROVIDERS: PCP Family Medicine; Visit Provider Registered Nurse
DX: R41.89 Other symptoms and signs involving cognitive functions and awareness (principal); Z87.891 Personal history of nicotine dependence; F10.21 Alcohol dependence, in remission; Z82.0 Family history of epilepsy and other diseases of the nervous system; R47.89 Other speech disturbances
CPT/HCPCS: 70551

== ENCOUNTER 2025-04-27 14:09 | Outpatient (CLI) | payer MEDICARE, OTHER, SELFPAY | END 2025-04-27 14:10 | disposition home or self-care (01) | LOC: LBO 14:11 | PROVIDERS: PCP Family Medicine; Visit Provider Physician Assistant | DX: C61 Malignant neoplasm of prostate (principal) | CPT/HCPCS: 36415; 84153; 70551 ==